=== PATIENT | female | born 1965 | race Caucasian/White ===

== ENCOUNTER 2016-08-11 14:50 | Emergency (ER) | END 2016-08-11 20:02 | disposition home or self-care (01) | DX: N12 Tubulo-interstitial nephritis, not specified as acute or chronic (principal); N83.201 Unspecified ovarian cyst, right side; I10 Essential (primary) hypertension | CPT/HCPCS: 36415; 74176; 80053; 81003; 83690; 85025; 87086; 96374; 96375; J2270; J2405; J7030; Z7502; Z7610 ==

== ENCOUNTER 2017-10-20 21:07 | Inpatient (IN) | END 2017-10-24 14:59 | disposition home or self-care (01) | DRG 101 ==

== ENCOUNTER 2018-10-06 05:27 | Inpatient (IN) | payer OTHER ==
[~2018-10-06] VITALS: Ht 165.1 cm; Wt 72.6 kg
[2018-10-06] VITALS (9 sets, daily range): BP systolic 95–114; BP diastolic 51–54; PULSE 68–95; RESP 18–19
[~2018-10-06 05:27] MED LIST: CIPR500T4 PO; CLON-412 PO; IBUP-1542 PO; KEP100S PO; LAMO100T83 PO; PHE30 PO
[2018-10-06] MEDS ORDERED: LAMO200T3 PO ×2 (06:07→06:11)
[2018-10-06] MEDS ORDERED: ACETAMINOPHEN 325 MG TAB PO PRN (06:30)
[2018-10-06] MEDS ORDERED: ONDANSETRON 4 MG INJ IV PRN (06:30)
[2018-10-06] MEDS ORDERED: DOCUSATE SODIUM 100 MG CAP PO PRN (06:30)
[2018-10-06] MEDS ORDERED: BISACODYL (EC) 5 MG TAB PO PRN (06:30)
[2018-10-06] MEDS ORDERED: NACL 0.9% 3 ML SYG IV SCH (06:30)
[2018-10-06] MEDS ORDERED: LORAZEPAM 2 MG INJ IV PRN (06:30)
--- NOTE | 2018-10-06 06:59 | HP ---
Date/Time of Note Date/Time of Note DATE: 10/06/18 TIME: 06:51 Assessment/Plan VTE Prophylaxis Risk score (from Nsg)>0 risk: 2 SCD applied (from Nsg): Yes Pharmacological prophylaxis: NA/contraindicated Pharm contraindication: low risk/ambulating Lines/Catheters IV Catheter Type (from Nrsg): Saline Lock Urinary Cath still in place: No Assessment/Plan Hospital Course This is a 52-year female being admitted to the telemetry floor for: #1 seizure disorder, worsening: Patient apparently has had approximately 5 seiz ures over the past 24 hours. At the current time she stable at the bedside. Will resume patient's home medications. As needed Ativan for seizure. Will get an MRI of the brain with and without contrast to assess for any underlying of normality's. EEG. Seizure and fall precautions. Monitor electrolytes. Continue Keppra, lamotrigine, phenobarbital. Patient's neurologist is Dr torrez, will consult. #2 headaches: At the current time she denies any photophobia. MRI of the brain with and without contrast has been ordered. #3 dysuria: We will check urinalysis, as this could be the cause of breakthrough seizures. #3 DVT GI prophylaxis: SCDs, no GI prophylaxis indicated Further treatment strategy will be implemented as per the clinical course HPI/ROS Admit Date/Time Admit Date/Time Oct 06, 2018 at 05:30 Hx of Present Illness Chief complaint: Intractable seizures This is a 52-year-old female with a past medical history of seizure disorder who presented to [facility] after having 5 episodic tonic- clonic seizures at home. She presented with her . Patient had a history of tonic-clonic seizures for over the last 20 years. She has not had any recent change in her medications. She takes Klonopin Lamictal Keppra and phenobarbital. Patient had 5 episodes of seizures and thus we will order to the emergency room there. Her neurologist is . Patient does report that she has had dysuria and urinary frequency lately. Pertinent laboratory findings from transfer facility please see chart for full details: CBC: White blood cell 6.1 hemoglobin 13.7 hematocrit 39.6 platelets 187 Sodium 132 potassium 4.4 chloride 97 CO2 21 glucose 115 creatinine 0.50 Phenobarbital level 381.[address] of the head without contrast: Showed no significant intracranial pathology identified on noncontrast CT. Allergies: Phenytoin Medications: Clonazepam 1 mg 1 tablet by mouth twice daily Lamictal 300 mg by mouth twice daily Keppra 1500 mg by mouth twice a day Phenobarbital 129.6 mg by mouth twice daily ROS Const: As per HPI Eyes : No pain discharge or redness or change in visual acuity ENT: No pain, sore throat, congestion, congestion, dysphagia or discharge Respiratory: No shortness of breath, cough, sputum, wheezing, or pleuritic pain Cardiovascular: No chest pain, palpitation, PND, or edema GI : no change in appetite, abdominal pain, nausea, vomiting, diarrhea, constipation, or change in the color his stool Genitourinary: As per HPI Musculoskeletal: No joint pain, back pain, neck pain, restricted range of motion in neck or joints Skin: No rash, bruising or hives Neuro: As per HPI Endocrine: No polyuria, polydipsia, temperature intolerance Psych: No hallucination, depression, anxiety or suicidal ideation PMH/Family/Social Past Medical History seizure disorder Medications Current Medications Clonazepam (Klonopin) 1 mg BID PO ; Start 10/06/18 at 09:00 Lamotrigine (Lamictal) 300 mg BID PO ; Start 10/06/18 at 09:00 Phenobarbital (Luminal) 129.6 mg BID PO ; Start 10/06/18 at 09:00 IV Flush (NS 3 ml) 3 ml PER PROTOCOL IV ; Start 10/06/18 at 06:30 Lorazepam (Ativan) 1 mg Q2H PRN IV SEIZURES; Start 10/06/18 at 06:30 Ondansetron HCl (Zofran Inj) 4 mg Q6H PRN IV NAUSEA/VOMITING; Start 10/06/18 at 06:30 Acetaminophen (Tylenol Tab) 650 mg Q6H PRN PO .PAIN 1-3 OR TEMP; Start 10/06/18 at 06:30 Docusate Sodium (Colace) 100 mg Q12H PRN PO .CONSTIPATION; Start 10/06/18 at 06:30 Bisacodyl (Dulcolax) 5 mg DAILY PRN PO .CONSTIPATION; Start 10/06/18 at 06:30 Levetiracetam (Keppra Liquid) 1,500 mg BID PO ; Start 10/06/18 at 09:00 Coded Allergies: Phenytoin Sodium Extended (Verified Allergy, Unknown, 08/11/16) phenytoin (Verified Allergy, Unknown, 08/11/16) phenytoin sodium (Verified Allergy, Unknown, 08/11/16) Past Surgical History History of tracheostomy, G-tube followed by removal of both Family History Significant Family History: no pertinent family hx Social History Alcohol Use: none Smoking Status: Never smoker Drug Use: none Exam/Review of Systems Vital Signs Vitals Vital Signs Date Temp Pulse Resp B/P (MAP) Pulse Ox O2 O2 Flow FiO2 Time Delivery Rate 10/06/18 98.2 68 19 114/53 96 06:00 (73) Intake and Output 10/05/18 10/05/18 10/06/18 1515:00 23:00 07:00 IntakeIntake Total 0 ml BalanceBalance 0 ml Exam Exam General: Patient is lethargic but she is arousable she does report dysuria HEENT: Atraumatic, normocephalic. The pupils are equal, round and reactive. Extraocular motor are intact Neck: Supple with full range of motion. No rigidity or meningismus Chest: Nontender Lungs: Clear to auscultation bilaterally no crackles rales or wheezing Heart: Normal S1-S2, Regular rhythm and rate. No murmur, S3, or S4 Abdomen: Soft , nontender, nondistended , bowel sounds are present. No guarding no rebound tenderness , No masses or organomegaly. No costovertebral temporal angle mass Extremities: Normal to inspection, no edema no cyanosis Neurologic: Normal mental status, speech normal, cranial nerves II through XII are intact, motor and sensory are intact, lethargic but arousable and able to converse RAUDEL CORDON Oct 06, 2018 06:59
[2018-10-06] MEDS: clonAZEPAM 0.5 MG TAB PO SCH ×2 (08:48→21:00)
[2018-10-06] MEDS: LEVETIRACETAM (100 MG/ML) 5ML CUP PO SCH ×2 (08:48→20:59)
[2018-10-06] MEDS: PHENOBARBITAL 32.4 MG TAB PO SCH ×2 (08:48→21:39)
[2018-10-06] MEDS: LAMOTRIGINE 100 MG TAB PO SCH ×2 (08:49→21:00)
[2018-10-06] MEDS ORDERED: LEVETIRACETAM (100 MG/ML PO SYG) PO SCH (09:00)
[2018-10-06] MEDS ORDERED: LAMOTRIGINE 100 MG TAB PO SCH (09:00)
[2018-10-06] MEDS: NITROFURANTOIN (SR) 100 MG CAP PO SCH ×2 (10:59→21:00)
--- NOTE | 2018-10-06 15:17 | CONS ---
Assessment/Plan Assessment/Plan Hospital Course 52 yo F with hx of seizures who presents following 5 reported seizure episodes... for which neurology is consulted. UA ++... which can certainly lower the seizure threshold. Medication noncompliance is additionally considered. P: Await MRI brain for further characterization Await EEG, though not presently indicated Add phb, UDS OK to continue phb, keppra, lamictal, and klonopin per ops for now Ativan IV PRN seizure > 5 min or for cluster Cont medical management per primary Will follow clinically. Consultation Date/Type/Reason Admit Date/Time Oct 06, 2018 at 05:30 Type of Consult Neurology Reason for Consultation seizures Requesting Provider: RAUDEL CORDON Date/Time of Note DATE: 10/06/18 TIME: 15:17 Hx of Present Illness 52 yo F with hx of epilepsy and other comorbidities who presented to [facility] from [place] for evaluation of seizures. She endorses full compliance with her AED regimen. It is additionally elsewhere noted: Hx of Present Illness Chief complaint: Intractable seizures This is a 52-year-old female with a past medical history of seizure disorder who presented to [facility] after having 5 episodic tonic- clonic seizures at home. She presented with her . Patient had a history of tonic-clonic seizures for over the last 20 years. She has not had any recent change in her medications. She takes Klonopin Lamictal Keppra and phenobarbital. Patient had 5 episodes of seizures and thus we will order to the emergency room there. Her neurologist is . Patient does report that she has had dysuria and urinary frequency lately. negative unless noted otherwise in HPI Exam/Review of Systems Exam Vitals Vital Signs Date Temp Pulse Resp B/P (MAP) Pulse Ox O2 O2 Flow FiO2 Time Delivery Rate 10/06/18 90 12:00 10/06/18 98.9 18 95/54 (68) 93 11:55 Intake and Output 10/05/18 10/05/18 10/06/18 1515:00 23:00 07:00 IntakeIntake Total 0 ml BalanceBalance 0 ml Exam PE: Gen Appearance: No Apparent Distress HEENT: Normocephalic Cardiovascular: Regular rate Lungs: Clear bilaterally Abdomen: Soft Extremities: Dry NE: The patient was alert and oriented. Language was normal. Fund of knowledge was normal. Pupils were equal and reactive to light. There was no afferent pupillary defect. Visual fraga were normal. Funduscopic examination was limited. Extra-ocular movements were full. Ptosis was absent. There was no nystagmus. Facial sensation was normal. Face was symmetric with normal strength. Hearing was intact. Palate movements were normal. Neck strength was normal. There was normal tongue bulk and speed of movement. Tone was normal. Muscle bulk was normal. I did not see fasciculations. Arms and legs were strong. Vibration sensation was normal. Temperature and pinprick sensation was normal. Rapid alternating movements were normal. There was no dysmetria. There was no intention tremor. Gait was deferred due to bedrest. Arm and leg reflexes were 2+ and symmetric. Freeman's sign was absent. Plantar responses were flexor. Results Result Diagram: 10/06/18 0700 10/06/18 0700 Results 24hrs Laboratory Tests Test 10/06/18 06:05 10/06/18 07:00 10/06/18 08:40 Serum HCG, Qualitative NEGATIVE White Blood Count 6.1 Red Blood Count 4.06 L Hemoglobin 14.0 Hematocrit 39.6 Mean Corpuscular Volume 97.5 Mean Corpuscular Hemoglobin 34.5 H Mean Corpuscular 35.4 Hemoglobin Concent Red Cell Distribution Width 12.0 Platelet Count 204 Mean Platelet Volume 10.2 Immature Granulocytes % 0.300 Neutrophils % 58.9 Lymphocytes % 30.2 Monocytes % 8.2 Eosinophils % 1.6 Basophils % 0.8 Nucleated Red Blood Cells % 0.0 Immature Granulocytes # 0.020 Neutrophils # 3.6 Lymphocytes # 1.8 Monocytes # 0.5 Eosinophils # 0.1 Basophils # 0.1 Nucleated Red Blood Cells # 0.0 Sodium Level 143 Potassium Level 3.5 Chloride Level 106 Carbon Dioxide Level 26 Anion Gap 11 Blood Urea Nitrogen 12 Creatinine 0.49 Est Glomerular Filtrat > 60 Rate mL/min Glucose Level 88 Hemoglobin A1c 5.0 Calcium Level 8.6 Total Bilirubin 0.4 Direct Bilirubin 0.00 Indirect Bilirubin 0.4 Aspartate Amino 21 Transf (AST/SGOT) Alanine 15 Aminotransferase (ALT/SGPT) Alkaline Phosphatase 81 Total Protein 6.6 Albumin 4.1 Globulin 2.50 Albumin/Globulin Ratio 1.64 Thyroid Stimulating 1.480 Hormone (TSH) Urine Color YELLOW Urine Clarity SLIGHTLY CLOUDY A Urine pH 6.0 Urine Specific [place] 1.012 Urine Ketones NEGATIVE Urine Nitrite POSITIVE A Urine Bilirubin NEGATIVE Urine Urobilinogen NEGATIVE Urine Leukocyte Esterase 3+ H Urine Microscopic RBC 1 Urine Microscopic WBC 58 H Urine Bacteria FEW A Urine Mucus FEW A Urine Yeast (Budding) FEW A Urine Hemoglobin NEGATIVE Urine Glucose NEGATIVE Urine Total Protein NEGATIVE Medications Medication Current Medications Clonazepam (Klonopin) 1 mg BID PO Last administered on 10/06/18at 08:48; Admin Dose 1 MG; Start 10/06/18 at 09:00 Lamotrigine (Lamictal) 300 mg BID PO Last administered on 10/06/18at 08:49; Admin Dose 300 MG; Start 10/06/18 at 09:00 Phenobarbital (Luminal) 129.6 mg BID PO Last administered on 10/06/18at 08:48; Admin Dose 129.6 MG; Start 10/06/18 at 09:00 IV Flush (NS 3 ml) 3 ml PER PROTOCOL IV ; Start 10/06/18 at 06:30 Lorazepam (Ativan) 1 mg Q2H PRN IV SEIZURES; Start 10/06/18 at 06:30 Ondansetron HCl (Zofran Inj) 4 mg Q6H PRN IV NAUSEA/VOMITING; Start 10/06/18 at 06:30 Acetaminophen (Tylenol Tab) 650 mg Q6H PRN PO .PAIN 1-3 OR TEMP; Start 10/06/18 at 06:30 Docusate Sodium (Colace) 100 mg Q12H PRN PO .CONSTIPATION; Start 10/06/18 at 06:30 Bisacodyl (Dulcolax) 5 mg DAILY PRN PO .CONSTIPATION; Start 10/06/18 at 06:30 Levetiracetam (Keppra Liquid) 1,500 mg BID PO Last administered on 10/06/18at 08:48; Admin Dose 1,500 MG; Start 10/06/18 at 09:00 Nitrofurantoin Macrocrystals (Macrobid) 100 mg BID PO Last administered on 10/06/18at 10:59; Admin Dose 100 MG; Start 10/06/18 at 09:30; Stop 10/11/18 at 09:29 Past Medical History reviewed Home Meds Reported Medications Lamotrigine* (Lamictal*) 200 Mg Tablet, 300 MG PO BID, TAB 10/06/18 Phenobarbital* (Phenobarbital*) 32.4 Mg Tab, 129.6 MG PO BID, TAB 09/22/13 Clonazepam* (Klonopin*) 1 Mg Tablet, 1 MG PO BID 09/22/13 Levetiracetam* (Keppra* (Ped)) 100 Mg/Ml Liq, 1500 MG PO BID 09/22/13 Medications Current Medications Clonazepam (Klonopin) 1 mg BID PO Last administered on 10/06/18at 08:48; Admin Dose 1 MG; Start 10/06/18 at 09:00 Lamotrigine (Lamictal) 300 mg BID PO Last administered on 10/06/18 08:49; Admin Dose 300 MG; Start 10/06/18 at 09:00 Phenobarbital (Luminal) 129.6 mg BID PO Last administered on 10/06/18 08:48; Admin Dose 129.6 MG; Start 10/06/18 at 09:00 IV Flush (NS 3 ml) 3 ml PER PROTOCOL IV ; Start 10/06/18 at 06:30 Lorazepam (Ativan) 1 mg Q2H PRN IV SEIZURES; Start 10/06/18 at 06:30 Ondansetron HCl (Zofran Inj) 4 mg Q6H PRN IV NAUSEA/VOMITING; Start 10/06/18 at 06:30 Acetaminophen (Tylenol Tab) 650 mg Q6H PRN PO .PAIN 1-3 OR TEMP; Start 10/06/18 at 06:30 Docusate Sodium (Colace) 100 mg Q12H PRN PO .CONSTIPATION; Start 10/06/18 at 06:30 Bisacodyl (Dulcolax) 5 mg DAILY PRN PO .CONSTIPATION; Start 10/06/18 at 06:30 Levetiracetam (Keppra Liquid) 1,500 mg BID PO Last administered on 10/06/18at 08:48; Admin Dose 1,500 MG; Start 10/06/18 at 09:00 Nitrofurantoin Macrocrystals (Macrobid) 100 mg BID PO Last administered on 10/06/18at 10:59; Admin Dose 100 MG; Start 10/06/18 at 09:30; Stop 10/11/18 at 09:29 Allergies: Coded Allergies: Phenytoin Sodium Extended (Verified Allergy, Unknown, 1/24/17) phenytoin (Verified Allergy, Unknown, 08/11/16) phenytoin sodium (Verified Allergy, Unknown, 08/11/16) Past Surgical History reviewed Social History reviewed Alcohol Use: none Smoking Status: Never smoker Drug Use: none URIEL RYDER NP Oct 06, 2018 15:17 ERAN JON Oct 06, 2018 17:17
[2018-10-07] VITALS: BP 110/55; PULSE 75; PULSE 79; RESP 18
[2018-10-07 04:00] VITALS: BP 101/55; PULSE 74; PULSE 77; RESP 18
[2018-10-07 07:11] VITALS: BP 107/53; PULSE 72; RESP 18
--- NOTE | 2018-10-07 07:35 | EEG ---
EEG NOTE Report Details DATE OF TEST: 10/06/18 HISTORY: The patient is a 52-year-old F with epilepsy who presents following breakthrough seizures. SEDATION: None. CONDITIONS OF RECORDING: This EEG was recorded digitally on the [employer] machine, using the International 10-20 System of electrodes plus anterior temporals and [place]. STATES SAMPLED: Wakefulness and drowsiness. FINDINGS: The background is continuous, grossly symmetric. During wakefulness, a well-formed posterior dominant rhythm is absent. There is excess beta activity. The normal [id number] frequency-amplitude gradient was absent. The remainder of the awake background is notable for admixed polymorphic theta and delta activity. Photic stimulation does not elicit any definite driving responses or epileptiform discharges. Hyperventilation was not performed. There are frequent right temporal epileptiform discharges. IMPRESSION: Abnormal electroencephalogram due to: diffuse slowing, excess beta activity, and frequent right temporal epileptiform discharges. COMMENT: The slowing of the background indicates diffuse cortical dysfunction of nonspecific etiology. Excess beta activity may be attributable to the use of medications, including but not limited to benzodiazepines or barbiturates. Frequent right temporal epileptiform discharges indicate a potentially epileptogenic focus in that region. ERAN JON Oct 07, 2018 07:35
[2018-10-07 08:00] VITALS: PULSE 72
[2018-10-07] MEDS: clonAZEPAM 0.5 MG TAB PO SCH (08:14)
[2018-10-07] MEDS: NITROFURANTOIN (SR) 100 MG CAP PO SCH (08:14)
[2018-10-07] MEDS: LEVETIRACETAM (100 MG/ML) 5ML CUP PO SCH (08:14)
[2018-10-07] MEDS: PHENOBARBITAL 32.4 MG TAB PO SCH (08:15)
[2018-10-07] MEDS: LAMOTRIGINE 100 MG TAB PO SCH (08:18)
[2018-10-07] MEDS ORDERED: NITR100C6 PO (10:42)
--- NOTE | 2018-10-07 10:42 | PDOCDIS ---
Discharge Instructions CONDITION [id number] Patient Condition: [id number] Good HOME CARE INSTRUCTIONS: [id number] Diet Instructions: [id number] Regular ACTIVITY: [id number] Activity Restrictions: [id number] No Restrictions FOLLOW UP/APPOINTMENTS Follow-up Plan FOLLOW UP WITH YOUR PCP AND NEUROLOGIST IN 1-2 WEEKS MARITZA GARLAND Oct 07, 2018 10:42
--- NOTE | 2018-10-07 12:47 | DS ---
Date/Time of Note Date/Time of Note DATE: 10/07/18 TIME: 12:42 Discharge Summary Admission/Discharge Info Admit Date/Time Oct 06, 2018 at 05:30 Discharge Date/Time Oct 07, 2018 at 12:08 Discharge Diagnosis 1. Acute on chronic seizures Patient does follow-up with a neurologist and is on multiple seizure medications, patient is compliant with her medications Patient has not had a seizure for many years now in exacerbation may have been secondary to UTI. MRI shows no significant acute findings, EEG shows nonspecific finding Neurology consultation appreciated Follow-up with outpatient neurologist Dr. Blanc Patient had no further seizures in house 2. UTI DC with p.o. antibiotics Patient Condition: Good Hospital Course Patient is a 52-year-old female with history of seizure disorder on multiple medications with good compliance and follow-up with a neurologist. Patient presented with 5 episodic tonic clonic seizures at home. Patient did report dysuria and was found to have a UTI and was started on antibiotics. Patient was seen by neurology and MRI showed no acute findings, EEG showed nonspecific findings. Patient had no further seizures in house and was stable for DC to follow-up with her neurologist. On day of discharge patient's vitals, labs and physical exam are stable. Home Meds Active Scripts Nitrofurantoin Monohyd Macrocr (Macrobid) 100 Mg Capsr, 100 MG PO BID for 4 Days, #8 CAP Prov:MARITZA GARLAND 10/07/18 Reported Medications Lamotrigine* (Lamictal*) 200 Mg Tablet, 300 MG PO BID, TAB 10/06/18 Phenobarbital* (Phenobarbital*) 32.4 Mg Tab, 129.6 MG PO BID, TAB 09/22/13 Clonazepam* (Klonopin*) 1 Mg Tablet, 1 MG PO BID 09/22/13 Levetiracetam* (Keppra* (Ped)) 100 Mg/Ml Liq, 1500 MG PO BID 09/22/13 Follow-up Plan FOLLOW UP WITH YOUR PCP AND NEUROLOGIST IN 1-2 WEEKS Primary Care Provider Not On Staff Doctor Time spent on discharge: > 30 minutes MARITZA GARLAND Oct 07, 2018 12:47
== END 2018-10-07 12:08 | disposition home or self-care (01) | DRG 101 ==
LOC: 6WM 05:30
PROVIDERS: ADMIT Family Medicine; ATTEND Family Medicine
DX: G40.909 Epilepsy, unspecified, not intractable, without status epilepticus (principal); N39.0 Urinary tract infection, site not specified; R51 Headache
CPT/HCPCS: 70553; 71045; 80053; 80177; 80184; 80307; 81001; 83036; 83735; 84100; 84443; 84703; 85025; 95819